=== PATIENT | male | born 1955 | race Caucasian/White ===

== ENCOUNTER 2024-03-08 13:11 | Outpatient (AMB) | payer MEDICARE, BC, SELFPAY ==
[2024-03-08 13:26] VITALS: BP 128/76; PULSE 69; RESP 18; TEMP 36.6; O2SAT 97; BMI 26.2
--- NOTE | 2024-03-08 13:26 | ORTHONT_ITS ---
Vital signs 03/08/24 13:26 Height 1.83 m Height Method Stated Weight 87.685 kg Weight Measurement Method Standing Scale BMI 26.2 BP 128/76 Blood Pressure Source Automatic Cuff Blood Pressure Location Right Upper Arm Position Sitting Respiration 18 Pulse 69 Pulse Source Monitor Temp 97.9 F Temp Source Temporal Artery Scan Pulse Oximetry (%) 97 Oxygen Delivery Method Room Air Med/Allergies Allergies & Medications Allergies No Known Allergies Allergy (Unknown, Uncoded 12/11/23 08:57) Medication Reconciliation No Known Home Medications 03/08/24 [History Confirmed 03/08/24] Exam Exam Patient is in no acute distress and is cooperative with the examination today. Patient has a normal mood and affect. Breathing is nonlabored. In no respiratory distress. Bilateral extremities were evaluated and demonstrates sensation intact to light touch. Palpable pedal pulses are present. No significant edema is present. Right knee is tender to palpation medially and laterally and there is no effusion. There is no instability. The knee feels stable varus and valgus stress and range of motion is 0 to 100 degrees Assessment and Plan Problem List (1) Aseptic loosening of prosthetic knee: Status: Acute Plan: Patient is a pleasant 60-year-old male with right knee pain and femoral-tibial loosening. The surgery was done in outside hospital and we would like to rule out infection. I will order labsTo rule out infection including both an ESR and CRP I will obtain a copy of his xrays from an outside institution. Will see him back once we get the results of his x-rays and lab results. I will also want to get his Synovasure report Advanced Care Planning Discussion Advance care planning discussed with:: patient Office Procedures GNS Level of Care Nursing/Assessment Patient Status: Established Patient Nursing Assessment/Reassesment: Medication Reconciliation, Update PMH in EMR and Vital Signs Coordination of Care: Complex Care and Chronic Disease 1-5, Education Complex Pt/Fam, Consent,records obtained, informed consent, Results/Orders obtained and Staff clarify orders Established Patient Charge Established Patient Point Assignment: 95 Established Patient Point Charge: EP Level 3 (80-115) [place] Intake Visit Data Collection New Patient or Established: Established Patient (seen at [facility] within 3 years) Reason for Visit:: KNEE PAIN Seen by Clinical Staff ONLY (RN/MA): No Verbal consent obtained for Telemed visit?: No Quality Facilitator Required: No PCP or OBGYN visit in last 3 months: Yes Hx Now: No Do You Feel Safe at Home: Yes Authorities Contacted: N/A Questionairres Past Medical History Past Medical History Have you ever been diagnosed with any of the following: Neurological Problems Seizures: No Cardiology Problems Congestive Heart Failure: No Respiratory Problems Chronic Obstructive Pulmonary Disease (COPD): No Genital/Urinary Problems Renal Disease: No Endocrine Problems Diabetes Mellitus Type 1: No Diabetes Mellitus Type 2: No Other Problems Blood Transfusions: No Anesthesia Reactions: No Subjective Visit Visit for: follow up visit and knee Immunization / Flu Flu Vaccine in the Last 12 Months: No Flu Vaccine Exclusion Criteria: No Exclusion Criteria History of Present Illness Chief complaint: KNEE PAIN Date of injury / onset of symptoms: NOV 2023 Date of 1st surgery (if applicable): [facility] [place] is a pleasant 60-year-old male with a history of a total knee [place] [address] Lobo. He is an avid hiker and is very active. He walks [place] [employer] [place] every year. The patient reports that he had an increase in knee pain 4 months ago. He was recently aspirated and was told that his components of both the femur and the t ibia are loose. He was seen up in [place] and they did send it for Synovasure. He is waiting for the results. He is here for second opinion. They wanted to do a two-stage exchange if it is infected Personal History Occupation: RETIRED Red flag PMH: none BMI Counceling provided: No Pain Pain level (0-10): 5 Pain duration: WITH MOVEMENT Pain location: inside (medial), outside (lateral), anterior and posterior Pain quality: sharp, dull and aching Pain timing: increases with activity Associated signs & symptoms: none Ambulatory data Ambulatory device: cane and walker Treatments Improvement with previous injections: No Improvement with PT: No Improvement with NSAIDS: yes (IBUPROFEN) Review of Systems Review of Systems: All systems negative unless otherwise noted in HPI.
== END 2024-03-08 13:42 | disposition home or self-care (01) ==
LOC: HODSRG 13:11
PROVIDERS: PCP Family Medicine; Referring Provider Family Medicine; Supervising Provider Orthopaedic Surgery Adult Reconstructive Orthopaedic Surgery; Visit Provider Orthopaedic Surgery Adult Reconstructive Orthopaedic Surgery
DX: T84.032D Mechanical loosening of internal right knee prosthetic joint, subsequent encounter (principal); M25.561 Pain in right knee
CPT/HCPCS: 99213; G0463

== ENCOUNTER → 2024-03-16 | Outpatient (CLI) | payer MEDICARE, BC, SELFPAY ==
--- NOTE | 2024-03-16 12:00 | XR_ITS ---
Examination: CT abdomen with intravenous contrast CT pelvis with intravenous contrast 2-D coronal reconstructions 2-D sagittal reconstructions Date and time of exam:March 16, 2024 1334 hours INDICATIONS: Hematuria and elevated PSA and laboratory examination December 2023. CTDI: vol (mGy) 13.6 DLP: (mGycm) 730 Technique: Multiple axial sections of the abdomen and pelvis have been obtained. 64 slice high-resolution scanner used. 3 mm axial sections have been obtained, post intravenous injection 60 cc [id number] 2-D sagittal, coronal reconstructions obtained. Low dose protocols were performed. One or more of the following dose reduction techniques were used; automated exposure control, adjustment of the mA and/or KV according to patient size, use of iterative reconstruction technique. Findings: No focal liver or splenic lesions No gallstones No pancreatic mass Aorta normal size Mild renal parenchymal scar formation 27 mm lateral right renal cyst No hydronephrosis or ureteral calculi No renal calculi Aorta normal size No bowel obstruction No pericecal inflammatory change, no diverticulitis Urinary bladder intact Prostate is irregular in contour, transverse dimension 5 cm No bladder mass or bladder calculi Advanced disc narrowing L5-S1 IMPRESSION: Mild bilateral renal parenchymal scar formation No renal or ureteral calculi, no hydronephrosis Prostatomegaly, transverse dimension 5 cm prostate irregular in contour
== END | disposition home or self-care (01) ==
PROVIDERS: PCP Family Medicine; Referring Provider Urology; Visit Provider Urology
DX: N28.89 Other specified disorders of kidney and ureter (principal); N40.0 Benign prostatic hyperplasia without lower urinary tract symptoms; N42.89 Other specified disorders of prostate
CPT/HCPCS: 74177; A4649; Q9967

== ENCOUNTER → 2024-03-16 | Outpatient (CLI) | payer MEDICARE, BC, SELFPAY ==
[2024-03-16 12:01] LABS: Anion Gap 6 (7-16); BUN/Creatinine Ratio 18 Ratio (12-20); Blood Urea Nitrogen 23 mg/dL (9-23); Calcium 10.6 mg/dL (8.3-10.6); Carbon Dioxide 29.8 mMol/L (20.0-31.0); Chloride 103 mMol/L (98-107); Creatinine (Component) 1.3 mg/dL (0.6-1.3); Glucose 115 mg/dL (74-106); Osmolality,Calculated 282 (275-295); Potassium 5.9 mMol/L (3.4-5.1); Sodium 139 mMol/L (136-145); eGFR 60 See Note
== END | disposition home or self-care (01) ==
PROVIDERS: PCP Family Medicine; Referring Provider Urology; Visit Provider Urology
DX: R31.1 Benign essential microscopic hematuria (principal)
CPT/HCPCS: 36415; 80048

== ENCOUNTER → 2024-03-22 | Outpatient (BNVA) | payer MEDICARE, BC, SELFPAY | END | disposition home or self-care (01) | PROVIDERS: PCP Family Medicine; Referring Provider Family Medicine; Visit Provider Urology | DX: N40.1 Benign prostatic hyperplasia with lower urinary tract symptoms (principal); N13.8 Other obstructive and reflux uropathy; N52.9 Male erectile dysfunction, unspecified; N28.89 Other specified disorders of kidney and ureter; R97.20 Elevated prostate specific antigen [PSA] | CPT/HCPCS: 81003; 99212; G0463 ==

== ENCOUNTER → 2024-04-15 | Outpatient (BNVA) | payer MEDICARE, BC, SELFPAY | END | disposition home or self-care (01) | PROVIDERS: PCP Family Medicine; Referring Provider Family Medicine; Visit Provider Urology | DX: N32.89 Other specified disorders of bladder (principal); N40.1 Benign prostatic hyperplasia with lower urinary tract symptoms; N13.8 Other obstructive and reflux uropathy | CPT/HCPCS: 52224; 81003; 96372; A4217; A4649; C1894; J1580; A9270 ==

== ENCOUNTER → 2024-05-24 | Outpatient (BNVA) | payer MEDICARE, BC, SELFPAY | END | disposition home or self-care (01) | PROVIDERS: PCP Family Medicine; Referring Provider Family Medicine; Visit Provider Urology | DX: N42.89 Other specified disorders of prostate (principal); N40.1 Benign prostatic hyperplasia with lower urinary tract symptoms; N13.8 Other obstructive and reflux uropathy | CPT/HCPCS: 55700; 76942; 81003; 96372; A4649; J1580; J3490; A9270 ==

== ENCOUNTER 2024-06-03 07:55 | Outpatient (AMB) | payer MEDICARE, BC, SELFPAY ==
--- NOTE | 2024-06-03 08:05 | ORTHONT_ITS ---
Vital signs 06/03/24 08:06 Height 1.8 m Height Method Stated Weight 86.636 kg Weight Measurement Method Standing Scale BMI 26.6 BP 134/80 H Blood Pressure Source Automatic Cuff Blood Pressure Location Left Upper Arm Position Sitting Respiration 18 Pulse 73 Pulse Source Monitor Temp 98.0 F Temp Source Temporal Artery Scan Pulse Oximetry (%) 98 Oxygen Delivery Method Room Air Med/Allergies Allergies & Medications Allergies No Known Allergies Allergy (Unknown, Uncoded 06/03/24 08:07) Medication Reconciliation tadalafil 10 mg tablet 10 mg PO QDAY PRN 03/22/24 [History Confirmed 06/03/24] Exam Exam Patient is in no acute distress and is cooperative with the examination today. Patient has a normal mood and affect. Breathing is nonlabored. In no respiratory distress. Bilateral extremities were evaluated and demonstrates sensation intact to light touch. Palpable pedal pulses are present. No significant edema is present. Right knee is tender to palpation medially and laterally and there is no effusion. There is no instability. The knee feels stable varus and valgus stress and range of motion is 0 to 100 degrees We reviewed x-rays from [facility]. This demonstrates femoral and tibial loosening with a radiolucent line. The tibial component is in slight varus. I did look at the initial postoperative films and there was no lucency on that film. This appeared to developed recently Assessment and Plan Problem List (1) Aseptic loosening of prosthetic knee: Status: Acute Plan: Patient is a 68-year-old male with aseptic loosening of the femoral and tibial component. He is very active. He still walks the [place] and is very long excursions. We discussed with him that this may have contributed possibly. We did an infection workup and it was negative. Given that he has a loose femoral and tibial component, we discussed revision total knee replacement both components. The nature and purpose of the Revision total knee replacement, alternative method(s) of treatment, the material risks involved, and the possibility of complications were fully explained to the patient. The patient does NOT have any of the following contraindications to TKA: - Active infection of the knee joint, OR - Active systemic bacteremia, OR - Active skin infection or open wound at surgical site, OR - Neuropathic arthritis, OR - Severe, rapidly progressive neurological disease, OR - Severe medical condition that makes risks of surgery outweigh the potential benefit The patient was told the most common risks and complications associated with a total knee replacement include, but are not limited to: blood clots in the leg, fatal pulmonary embolism, dislocation of the prosthesis, intraoperative and postoperative fractures of the femur or tibia, infection, failure of the prosthesis or grafting materials, complications from anesthesia, reactions to blood transfusions, postoperative leg length inequality, instability of the knee replacement, nerve damage or injury, vascular injury, delayed wound healing, infection, other injury or even . In addition, there are risks associated with anesthesia given during this operation. Also, the patient was told that after undergoing a total knee replacement there may still be persistent pain or disability. The patient was informed that the success of this operation in part depends upon the mechanical devices which are going to be implanted and that these devices can fail or malfunction, and may need to be repaired or replaced and there are no guarantees as to the longevity of this device or its parts and that it or its parts could fail prematurely. The patient was also notified that during the course of surgery, there may be a need to use bone graft from donors, and that any bone graft used will be carefully screened for communicable diseases, including AIDS, hepatitis, Alfonso-Creutzfeldt, or other diseases, but despite the screening procedures, there is a small chance that they could contract one of these diseases. Finally, the patient was asked to follow completely and fully with all advice and recommended treatments, and that recovery and ultimate outcome are affected by their compliance with recommended treatment. We discussed the risks, benefits and treatment alternatives, and the patient is interested in proceeding with surgery. We will try to set this up as expeditiously as possible. Advanced Care Planning Discussion Advance care planning discussed with:: patient Office Procedures GNS Level of Care Nursing/Assessment Patient Status: Established Patient Nursing Assessment/Reassesment: Medication Reconciliation, Update PMH in EMR and Vital Signs Coordination of Care: Complex Care and Chronic Disease 1-5, Education Complex Pt/Fam, Consent,records obtained, informed consent, Results/Orders obtained and Staff clarify orders Established Patient Charge Established Patient Point Assignment: 95 Established Patient Point Charge: EP Level 3 (80-115) [place] Intake Visit Data Collection New Patient or Established: Established Patient (seen at [facility] within 3 years) Reason for Visit:: FOLLOW UP RIGHT KNEE PAIN PCP or OBGYN visit in last 3 months: Yes Hx Now: No Do You Feel Safe at Home: Yes Authorities Contacted: N/A Questionairres Past Medical History Past Medical History Have you ever been diagnosed with any of the following: Neurological Problems Seizures: No Cardiology Problems Congestive Heart Failure: No Respiratory Problems Chronic Obstructive Pulmonary Disease (COPD): No Smoking: No Smoking Exposure: No Genital/Urinary Problems Renal Disease: No Endocrine Problems Diabetes Mellitus Type 1: No Diabetes Mellitus Type 2: No Other Problems Blood Transfusions: No Anesthesia Reactions: No Surgical History Total Knee Replacement: Yes (10/2019) Subjective Visit Visit for: follow up visit and knee (RIGHT) Immunization / Flu Flu Vaccine in the Last 12 Months: No Flu Vaccine Exclusion Criteria: No Exclusion Criteria History of Present Illness Chief complaint: right knee pain Patient is a pleasant 60-year-old male who is very did with a prior right total knee replacement. This unfortunately became loose. He is still walking but is in quite a bit of pain. We thus discussed revision knee replacement is reasonable option as he has documented aseptic loosening of both the femoral and tibial component. We did Previously workup infection and it was negative Pain Pain level (0-10): 10 Pain duration: CONSTANT Pain location: inside (medial), outside (lateral), anterior and posterior Pain quality: dull and aching Pain timing: night, increases with activity, stairs and other (specify) (WHEN SITTING TOO LONG) Ambulatory data Ambulatory device: none Treatments Improvement with previous injections: No Improvement with PT: No Improvement with NSAIDS: no Review of Systems Review of Systems: All systems negative unless otherwise noted in HPI.
[2024-06-03 08:06] VITALS: BP 134/80; PULSE 73; RESP 18; TEMP 36.7; O2SAT 98; BMI 26.6
--- NOTE | 2024-06-03 08:19 | XR_ITS ---
Examination: Right knee 4 views TECHNIQUE: Standing AP oblique lateral axial right knee 4 views Exam date and time: June 03, 2024 0832 hours INDICATIONS: Right knee replacement 2019, onset right knee pain beginning 5 months ago. FINDINGS: Moderate osteopenia Total right knee arthroplasty. Satisfactory alignment. No fracture No patellar dislocation IMPRESSION: Total right knee arthroplasty with satisfactory alignment
== END 2024-06-03 08:31 | disposition home or self-care (01) ==
LOC: HODSRG 07:55
PROVIDERS: PCP Family Medicine; Referring Provider Family Medicine; Supervising Provider Orthopaedic Surgery Adult Reconstructive Orthopaedic Surgery; Visit Provider Orthopaedic Surgery Adult Reconstructive Orthopaedic Surgery
DX: T84.032D Mechanical loosening of internal right knee prosthetic joint, subsequent encounter (principal); Y84.9 Medical procedure, unspecified as the cause of abnormal reaction of the patient, or of later complication, without mention of misadventure at the time of the procedure
CPT/HCPCS: 73564; 99213; G0463

== ENCOUNTER 2024-06-08 07:00 | Inpatient (IN) | payer MEDICARE, BC, SELFPAY ==
[2024-06-07 07:44] VITALS: BMI 28.0
--- NOTE | 2024-06-07 07:59 | EKG_ITS ---
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
[2024-06-07 08:38] LABS: Basophils % (Auto) 1 % (0-2.5); Eosinophils # (Auto) 0.2 Thou/mm3 (0.0-0.5); Eosinophils % (Auto) 4 % (0-10); Hematocrit 42.1 % (41.0-53.0); Immature Granulocytes % (Auto) 0 % (0-0); Lymphocytes # (Auto) 1.3 Thou/mm3 (1.0-4.8); Lymphocytes % (Auto) 29 % (10-50); Mean Corpuscular HGB Conc 33.3 g/dl (31.0-37.0); Mean Corpuscular Hemoglobin 30.2 pg (25.0-35.0); Mean Corpuscular Volume 91 fL (80-100); Monocytes # (Auto) 0.4 Thou/mm3 (0.0-0.8); Monocytes % (Auto) 9 % (0-12); Neutrophils # (Auto) 2.5 Thou/mm3 (1.8-7.7); Neutrophils % (Auto) 57 % (37-80); Nucleated Red Blood Cell % 0 /100 WBC (0); Platelet Count 283 Thou/mm3 (140-440); RDW Standard Deviation 42.3 fL (35.1-43.9); Red Blood Count 4.63 Miln/mm3 (4.50-5.90); White Blood Count 4.4 Thou/mm3 (3.8-10.6)
[2024-06-07 08:40] LABS: Partial Thromboplastin Time 26.7 Seconds (22.0-36.0); Prothrombin Time 10.9 Seconds (9.0-12.2)
[2024-06-07 08:51] LABS: Alanine Aminotransferase 28 U/L (10-49); Albumin, Serum 4.3 gm/dL (3.4-4.8); Albumin/Globulin Ratio 1.6 (1.2-2.2); Alkaline Phosphatase 69 U/L (46-116); Anion Gap 8 (7-16); Aspartate Amino Transferase 31 U/L (0-34); BUN/Creatinine Ratio 19 Ratio (12-20); Bilirubin,Total 0.7 mg/dL (0.3-1.2); Blood Urea Nitrogen 21 mg/dL (9-23); Calcium 10.3 mg/dL (8.3-10.6); Calcium (Corrected) 10.3 mg/dL (8.5-10.1); Carbon Dioxide 28.5 mMol/L (20.0-31.0); Chloride 102 mMol/L (98-107); Creatinine (Component) 1.1 mg/dL (0.6-1.3); Estimated Creatinine Clearance 69.9 mL/min (>60); Globulin 2.7 gm/dL (2.3-3.5); Glucose 107 mg/dL (74-106); Osmolality,Calculated 278 (275-295); Sodium 138 mMol/L (136-145); eGFR > 60 See Note
--- NOTE | 2024-06-07 15:09 | SUR.PREOP ---
Pt had appointment with [facility] at 1330 today for cardiac clearence, Dr Glover's MA stated they will fax it as soon as the Dr is done with the office notes. Dr Tinoco aware.
[2024-06-08] VITALS (13 sets, daily range): BP systolic 107–131; BP diastolic 61–84; PULSE 66–90; RESP 12–95; TEMP 36–37; O2SAT 92–100; BMI 27.8
[2024-06-08] MEDS: ACETAMINOPHEN 325 MG TABLET 650 MG PO (08:40)
[2024-06-08] MEDS: PREGABALIN 75 MG CAPSULE PO (08:41)
[2024-06-08] MEDS: MELOXICAM 7.5 MG TABLET PO ×2 (08:41→20:24)
[2024-06-08] MEDS: SODIUM CHLORIDE 0.9% 500 ML 500 ML 20 ML IV (08:42)
--- NOTE | 2024-06-08 14:20 | PD.SUROPNT ---
Date of Procedure 06/08/24 Pre Op Diagnosis mechanical loosening right knee Post Op Diagnosis mechanical loosening right knee Procedure right knee replacement Findings loose tibia and osteolysis Procedure Description Indication: The patient is a 68 year old who has a long history of left knee pain. He was found To have a loose tibial and possibly femoral component with radiolucent lines. The nature and purpose of the revision total knee replacement, alternative method(s) of treatment, the material risks involved, and the possibility of complications were fully explained to the patient. The patient was told the most common risks and complications associated with a revision total knee replacement include, but are not limited to blood clots in the leg, fatal pulmonary embolism, dislocation of the prosthesis, intraoperative and postoperative fractures of the femur or tibia, infection, failure of the prosthesis or grafting materials, complications from anesthesia, reactions to blood transfusions, postoperative leg length inequality, instability of the knee replacement, nerve damage or injury, vascular injury, delayed wound healing, infections, other injury or even . In addition, there are risks associated with anesthesia given during this operation, temporary or permanent numbness on the skin lateral to the incision can be a complication unique to total knee surgery, and kneeling can be painful after knee replacement surgery. Also, the patient was told that after undergoing a total knee replacement there may still be pain or disability. We also discussed that there is potential of infection even though we ruled out infection before given that radiolucent lines are rather rare The patient was informed that the success of this operation in part depends upon the mechanical devices which are going to be implanted and that these devices can fail or malfunction, and may need to be repaired or replaced and there are no guarantees as to the longevity of this device or its part and that it or its parts could fail prematurely. Finally, the patient was asked to follow completely and fully with all advice and recommended treatments, and that recovery and ultimate outcome are affected by their compliance with recommended treatment. Surgical technique: Patient was marked and consented in the pre-operative area. The patient was brought to the operating room and placed on the operating table in a supine position. Prior to positioning, a timeout procedure was performed between the surgeon, the anesthesiologist, and the nursing staff where the patient and the operative side were identified and confirmed. After adequate general anesthetic was obtained, the left lower extremity was prepped and draped in the usual sterile fashion. A weight based dose of Cefazolin were administered within 1 hour prior to incision. The extremity was exsanguinated with an esmarch badge and tourniquet inflated to 250mmHg. A midline incision was made. A median parapatellar arthrotomy was made. The patella was subluxed laterally. We first took several cultures. We then debrided devitalized tissue and cement debris. We then removed the tibial polyethylene. We then used a microsag saw to debond the femoral implant from the bone.We then removed the femur with a backslap to removed it with minimal bone loss. We then removed the tibial component which was grossly loose. We sequentially reamed the tibial canal with an intramedullary jig. We then cut the tibial plateau ensuring that we were sparing bone using the intramedullary cutting guide. We then prepared the tibia for B cone. Attention was then placed to the femur where we sequentially reamed the femoral canal. We used an intramedullary jig and sequentially reamed the femur. It was found that a 5 mm augment distally as well as posteriorly both medially and laterally were needed. We then cut the chamfers using the 4-in-1 block. We then trialed components. The knee was found to be stable in flexion and extension and varus valgus stress. We then irrigated the knee copiously with saline and surgery 4. We then placed a cement restrictor followed by a size B cementless cone. We then inserted a cement restrictor in the tibia and pressurized the tibial canal. We used 2 bags of Palacos and cemented the tibial component which was a size 5 with a 75 mm stem. We then went to the femoral component and cemented the femur which was a size 5 with 5 mm distal and posterior medial and lateral augments. We then inserted a size 14 poly trial and put the knee in extension until dry. We then trialed the implants with different size poly and used a size 14 poly and inserted it. The patella tracked well and no laterally strokes required The wounds were copiously irrigated following deflation of tourniquet. The medial retinaculum was reapproximated with #1 vicryl and quill. The subcutaneous tissues were closed with 0 and 2-0 interrupted Vicryl. The skin was closed with 3-0 Monofilament V loc suture. A sterile dressing was applied. The patient was transferred to a bed and brought to recovery in stable condition. The patient tolerated the procedure well. There were no intraoperative complications. Sponge and needle counts were correct times 2. As the attending surgeon, I attest I was present and performed the entire operation. Grafts/Implants Size 5 PS femur, size 5 tibia, 14 mm poly CS, 75 mm tibial stem, 100 mm femoral stem, size B: Tibia Anesthesia GETA Implants vanita Pathology / specimen None Pathology comment: none Estimated Blood Loss [address] floor Surgeon Carl Vang MD Surgical Staff Operation Date: 06/08/24 11:00 Case Staff Anesthesiologist: Kushal Jackson RN First Assistant: Gema Richards
--- NOTE | 2024-06-08 14:38 | SUR.PHASEI ---
1438 Patient arrived to recovery in bed, on oxygen 6L via oxy mask, oral airway removed upon arrival, breathing unlabored, vital signs stable, dressing intact to right knee; prineo, telfa, nga, kate wraps, no bleeding noted, denies pain, bilateral dorsalis pedis pulses present when palpated, patient has good circulation to right lower extremity; skin warm to touch and skin color normal for patient, capillary refill to right toes is one second, report received from Dr. Jackson and Ida HE/Leticia HE
[2024-06-08] MEDS: MORPHINE SULF INJ 10 MG/ML VIAL 3 MG IV (14:56)
[2024-06-08] MEDS: ACETAMINOPHEN IVPB 1,000 MG/100 ML VIAL 250 MG IV (14:59)
--- NOTE | 2024-06-08 15:00 | XR_ITS ---
Examination: Right knee 2 views Technique one AP lateral right knee 2 views Exam date and time: June 08, 2024 1520 hrs. Indications: Postop knee arthroplasty. Findings: Total right knee arthroplasty. Satisfactory alignment. No acute fracture Impression: Total right knee arthroplasty with satisfactory alignment
[2024-06-08] MEDS: HYDROmorphone INJ 2 MG/ML VIAL 0.4 MG IV (15:11)
--- NOTE | 2024-06-08 15:28 | SUR.PHASEI ---
1528 XRAY complete per MD order
[2024-06-08] MEDS: oxyCODONE HCL 5 MG IR TAB 10 MG PO (15:33)
--- NOTE | 2024-06-08 16:25 | SUR.PHASEII ---
1621 Report given to Marina HE, patient meets discharge criteria from recovery, awake and talking with his , breathing unlabored, vital signs stable, per patient his pain is tolerable, dressing intact; no bleeding noted, patient drinking fluids; tolerating well, denies nausea 1625 Patient transported via bed to room 361 without incident.
[2024-06-08] MEDS: ASPIRIN EC 81 MG TABEC PO (20:24)
[2024-06-08] MEDS: ceFAZolin/D5W 2 GM IV 2 GM/100 ML BAG IV (21:02)
[2024-06-09] VITALS: BP 113/72; PULSE 60; RESP 20; TEMP 35.9; O2SAT 95
[2024-06-09 04:00] VITALS: BP 110/68; PULSE 65; RESP 20; TEMP 35.6; O2SAT 97
[2024-06-09] MEDS: ceFAZolin/D5W 2 GM IV 2 GM/100 ML BAG IV (05:05)
[2024-06-09] MEDS: ACETAMINOPHEN 500 MG TABLET 1000 MG PO (05:06)
[2024-06-09 05:38] LABS: Basophils % (Auto) 0 % (0-2.5); Eosinophils % (Auto) 0 % (0-10); Hematocrit 38.2 % (41.0-53.0); Immature Granulocytes % (Auto) 0 % (0-0); Immature Granulocytes Auto 0.03 Thou/mm3 (0.00-0.00); Lymphocytes # (Auto) 0.5 Thou/mm3 (1.0-4.8); Lymphocytes % (Auto) 4 % (10-50); Mean Corpuscular Hemoglobin 30.7 pg (25.0-35.0); Mean Corpuscular Volume 90 fL (80-100); Monocytes # (Auto) 0.4 Thou/mm3 (0.0-0.8); Monocytes % (Auto) 3 % (0-12); Neutrophils # (Auto) 11.8 Thou/mm3 (1.8-7.7); Neutrophils % (Auto) 93 % (37-80); Nucleated Red Blood Cell % 0 /100 WBC (0); Platelet Count 232 Thou/mm3 (140-440); RDW Standard Deviation 42.1 fL (35.1-43.9); Red Blood Count 4.23 Miln/mm3 (4.50-5.90); White Blood Count 12.7 Thou/mm3 (3.8-10.6)
[2024-06-09 07:42] VITALS: BP 112/64; PULSE 63; RESP 16; TEMP 36.4; O2SAT 94
[2024-06-09] MEDS: ASPIRIN EC 81 MG TABEC PO (08:53)
[2024-06-09] MEDS: oxyCODONE HCL 5 MG IR TAB PO (09:05)
[2024-06-09] MEDS: PANTOPRAZOLE INJ 40 MG VIAL IV (09:57)
== END 2024-06-09 10:30 | disposition home or self-care (01) | DRG 470 ==
LOC: S2W1 15:01 → S3NX 16:31
PROVIDERS: Anesthesiology; Admitting Provider Orthopaedic Surgery Adult Reconstructive Orthopaedic Surgery; PCP Family Medicine; Visit Provider Orthopaedic Surgery Adult Reconstructive Orthopaedic Surgery
PROC: 0SRC0J9 Replacement of Right Knee Joint with Synthetic Substitute, Cemented, Open Approach (ICD-10-PCS; CPT 27487; principal; 2024-06-08 10:45)
DX: T84.030A Mechanical loosening of internal right hip prosthetic joint, initial encounter (principal); M25.562 Pain in left knee
CPT/HCPCS: 36415; 73560; 80053; 85025; 85610; 85730; 87070; 87075; 87081; 87205; 93005; 97162; A4217; C1713; C1776; J0131; J0689; J0690; J1100; J1885; J2250; J2270; J2405; J2470; J2704; J2795; J3010; J3371; J3490; J7030; J7040; J7120; J7999; A4648; A4649; A9270

== ENCOUNTER 2024-06-23 13:11 | Outpatient (AMB) | payer MEDICARE, BC, SELFPAY ==
--- NOTE | 2024-06-23 13:28 | ORTHONT_ITS ---
Vital signs 06/23/24 13:29 Height 1.73 m Height Method Stated Weight 82.554 kg Weight Measurement Method Standing Scale BMI 27.6 BP 127/77 Blood Pressure Source Automatic Cuff Blood Pressure Location Right Upper Arm Position Sitting Respiration 18 Pulse 67 Pulse Source Monitor Temp 98.5 F Temp Source Temporal Artery Scan Pulse Oximetry (%) 98 Oxygen Delivery Method Room Air Med/Allergies Allergies & Medications Allergies No Known Allergies Allergy (Verified 06/23/24 13:30) Medication Reconciliation tadalafil 10 mg tablet 10 mg PO QDAY PRN sexual activity 03/22/24 [History Confirmed 06/23/24] acetaminophen 500 mg tablet (Acetaminophen Extra Strength) 1,000 mg (2 x 500 mg) PO Q6H PRN pain #90 tabs 06/08/24 [Rx Confirmed 06/23/24] aspirin 81 mg tablet,delayed release 81 mg PO BID #60 tabs 06/08/24 [Rx Confirmed 06/23/24] doxycycline hyclate 100 mg tablet 100 mg PO BID #14 tabs 06/08/24 [Rx Confirmed 06/23/24] oxycodone 5 mg tablet 5 mg PO Q6H PRN pain #28 tabs 06/08/24 [Rx Confirmed 06/23/24] sennosides 8.6 mg-docusate sodium 50 mg tablet (Senna-S) 1 tab-cap PO QDAY #30 tabs 06/08/24 [Rx Confirmed 06/23/24] gabapentin 300 mg capsule 300 mg PO .qhs #30 caps 06/23/24 [Rx] Exam Exam Patient is in no acute distress and is cooperative with the examination today. Patient has a normal mood and affect. Breathing is nonlabored. In no respiratory distress. Bilateral extremities were evaluated and demonstrates sensation intact to light touch. Palpable pedal pulses are present. No significant edema is present. Right knee is tender to palpation medially and laterally and there is no effusion. Incisions clean dry intact. Range of motion is 0 to 100 degrees Assessment and Plan Problem List (1) Aseptic loosening of prosthetic knee: Status: Acute Plan: Patient is a 68-year-old male with aseptic loosening of the femoral and tibial component. He is very active. He is doing well status post revision. We will see him in approximately 4 weeks with new x-rays. He is doing fantastic. Advanced Care Planning Discussion Advance care planning discussed with:: patient Office Procedures GNS Level of Care Nursing/Assessment Patient Status: Established Patient Nursing Assessment/Reassesment: Medication Reconciliation, Update PMH in EMR and Vital Signs Coordination of Care: Complex Care and Chronic Disease 1-5, Education Complex Pt/Fam, Consent,records obtained, informed consent, Results/Orders obtained and Staff clarify orders Established Patient Charge Established Patient Point Assignment: 95 Established Patient Point Charge: EP Level 3 (80-115) MA Intake Visit Data Collection New Patient or Established: Established Patient (seen at [facility] within 3 years) Reason for Visit:: 2 week post op right knee revision Seen by Clinical Staff ONLY (RN/MA): No Verbal consent obtained for Telemed visit?: No Finish Grinder Required: No PCP or OBGYN visit in last 3 months: Yes Hx Now: No Do You Feel Safe at Home: Yes Authorities Contacted: N/A Questionairres Past Medical History Past Medical History Have you ever been diagnosed with any of the following: Neurological Problems Seizures: No Cardiology Problems Congestive Heart Failure: No Valvular Heart Disease: Yes (Leaky valve) Respiratory Problems Chronic Obstructive Pulmonary Disease (COPD): No Smoking: No Smoking Exposure: No Stomache/Intestinal Problems Hepatitis: No Celiac Disease: No Genital/Urinary Problems Renal Disease: No Benign Prostatic Hyperplasia: Yes Head,Eye,Nose,Throat Problems Cataracts: Yes Endocrine Problems Diabetes Mellitus Type 1: No Diabetes Mellitus Type 2: No Other Problems Hospitalization: Yes (surgery) Shingles: No Blood Transfusions: No Blood Transfusion Reaction: No Anesthesia Reactions: No Chicken Pox: Yes Measles: Yes Mumps: Yes Cancer: No Surgical History Total Knee Replacement: Yes (10/2019) Subjective Visit Visit for: follow up visit and knee Immunization / Flu Flu Vaccine in the Last 12 Months: No Flu Vaccine Exclusion Criteria: No Exclusion Criteria History of Present Illness Chief complaint: 2 week post op right knee revision Carlitos is 2 weeks status post right total knee revision for mechanical loosening. He is doing well. He is using no assistive device at this time Pain Pain level (0-10): 0 Associated signs & symptoms: none Ambulatory data Ambulatory device: none Treatments Improvement with previous injections: No Improvement with PT: No Improvement with NSAIDS: no Review of Systems Review of Systems: All systems negative unless otherwise noted in HPI.
[2024-06-23 13:29] VITALS: BP 127/77; PULSE 67; RESP 18; TEMP 36.9; O2SAT 98; BMI 27.6
== END 2024-06-23 13:37 | disposition home or self-care (01) ==
LOC: HODSRG 13:11
PROVIDERS: PCP Family Medicine; Referring Provider Family Medicine; Supervising Provider Orthopaedic Surgery Adult Reconstructive Orthopaedic Surgery; Visit Provider Orthopaedic Surgery Adult Reconstructive Orthopaedic Surgery
DX: T84.032D Mechanical loosening of internal right knee prosthetic joint, subsequent encounter (principal); Y84.9 Medical procedure, unspecified as the cause of abnormal reaction of the patient, or of later complication, without mention of misadventure at the time of the procedure
CPT/HCPCS: 99213; G0463

== ENCOUNTER → 2024-07-19 | Outpatient (CLI) | payer MEDICARE, BC, SELFPAY ==
--- NOTE | 2024-07-19 | XR_ITS ---
Examination: Bilateral AP knees single view PA standing flexion right knee, standing lateral right knee, axial right knee TECHNIQUE: Bilateral AP knees standing single view PA standing flexion right knee, standing lateral right knee, axial right knee 3 views total 4 views Date and time: July 19, 2024 0806 hours INDICATIONS: Status post knee surgery 4 weeks ago. FINDINGS: Total right knee arthroplasty. Satisfactory alignment. No fracture. No loosening of the prosthetic components. No patellar dislocation. Mild to moderate narrowing medial joint space left knee IMPRESSION: Total right knee arthroplasty with satisfactory alignment
== END | disposition home or self-care (01) ==
PROVIDERS: PCP Family Medicine; Referring Provider Orthopaedic Surgery Adult Reconstructive Orthopaedic Surgery; Visit Provider Orthopaedic Surgery Adult Reconstructive Orthopaedic Surgery
DX: T84.038A Mechanical loosening of other internal prosthetic joint, initial encounter (principal); Z96.651 Presence of right artificial knee joint
CPT/HCPCS: 73564

== ENCOUNTER 2024-07-21 12:50 | Outpatient (AMB) | payer MEDICARE, BC, SELFPAY ==
[2024-07-21 13:07] VITALS: BP 123/74; PULSE 63; RESP 18; TEMP 37.1; O2SAT 99; BMI 28.1
--- NOTE | 2024-07-21 13:07 | ORTHONT_ITS ---
Vital signs 07/21/24 13:07 Height 1.73 m Height Method Stated Weight 84.17 kg Weight Measurement Method Standing Scale BMI 28.1 BP 123/74 Blood Pressure Source Automatic Cuff Blood Pressure Location Right Upper Arm Position Sitting Respiration 18 Pulse 63 Pulse Source Monitor Temp 98.8 F Temp Source Temporal Artery Scan Pulse Oximetry (%) 99 Oxygen Delivery Method Room Air Med/Allergies Allergies & Medications Allergies No Known Allergies Allergy (Verified 07/21/24 13:08) Medication Reconciliation tadalafil 10 mg tablet 10 mg PO QDAY PRN sexual activity 03/22/24 [History Confirmed 07/21/24] acetaminophen 500 mg tablet (Acetaminophen Extra Strength) 1,000 mg (2 x 500 mg) PO Q6H PRN pain #90 tabs 06/08/24 [Rx Confirmed 07/21/24] aspirin 81 mg tablet,delayed release 81 mg PO BID #60 tabs 06/08/24 [Rx Confirmed 07/21/24] doxycycline hyclate 100 mg tablet 100 mg PO BID #14 tabs 06/08/24 [Rx Confirmed 07/21/24] oxycodone 5 mg tablet 5 mg PO Q6H PRN pain #28 tabs 06/08/24 [Rx Confirmed 07/21/24] sennosides 8.6 mg-docusate sodium 50 mg tablet (Senna-S) 1 tab-cap PO QDAY #30 tabs 06/08/24 [Rx Confirmed 07/21/24] gabapentin 300 mg capsule 300 mg PO .qhs #30 caps 06/23/24 [Rx Confirmed 07/21/24] Exam Exam Patient is in no acute distress and is cooperative with the examination today. Patient has a normal mood and affect. Breathing is nonlabored. In no respiratory distress. Bilateral extremities were evaluated and demonstrates sensation intact to light touch. Palpable pedal pulses are present. No significant edema is present. Right knee is tender to palpation medially and laterally and there is no effusion. Incisions clean dry intact. 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 He is very active. He is doing well status post revision. He is doing very well. We will see him back in approximately 4 months Advanced Care Planning Discussion Advance care planning discussed with:: patient Office Procedures GNS Level of Care Nursing/Assessment Patient Status: Established Patient Nursing Assessment/Reassesment: Medication Reconciliation, Update PMH in EMR and Vital Signs Coordination of Care: Complex Care and Chronic Disease 1-5, Consent,records obtained, informed consent, Education Simp Pt/Fam, Results/Orders obtained and Staff clarify orders Established Patient Charge Established Patient Point Assignment: 90 Established Patient Point Charge: EP Level 3 (80-115) MA Intake Visit Data Collection New Patient or Established: Established Patient (seen at [facility] within 3 years) Reason for Visit:: 6 WEEK POST OP RT KNEE REVISION Seen by Clinical Staff ONLY (RN/MA): No Secretary Receptionist Required: No PCP or OBGYN visit in last 3 months: Yes Hx Now: No Do You Feel Safe at Home: Yes Authorities Contacted: N/A Questionairres Past Medical History Past Medical History Have you ever been diagnosed with any of the following: Neurological Problems Seizures: No Cardiology Problems Congestive Heart Failure: No Valvular Heart Disease: Yes (Leaky valve) Respiratory Problems Chronic Obstructive Pulmonary Disease (COPD): No Smoking: No Smoking Exposure: No Stomache/Intestinal Problems Hepatitis: No Celiac Disease: No Genital/Urinary Problems Renal Disease: No Benign Prostatic Hyperplasia: Yes Head,Eye,Nose,Throat Problems Cataracts: Yes Endocrine Problems Diabetes Mellitus Type 1: No Diabetes Mellitus Type 2: No Other Problems Hospitalization: Yes (surgery) Shingles: No Blood Transfusions: No Blood Transfusion Reaction: No Anesthesia Reactions: No Chicken Pox: Yes Measles: Yes Mumps: Yes Cancer: No Surgical History Total Knee Replacement: Yes (10/2019) Subjective Visit Visit for: post op #2 (RT KNEE REVISION ) Immunization / Flu Flu Vaccine in the Last 12 Months: No Flu Vaccine Exclusion Criteria: Refused by Patient History of Present Illness Chief complaint: 2 week post op right knee revision Carlitos is 6 weeks status post right total knee revision for mechanical loosening. He is doing well. He is using no assistive device at this time and is very happy Personal History Red flag PMH: none Pain Pain level (0-10): 0 Associated signs & symptoms: none Ambulatory data Ambulatory device: none Treatments Improvement with previous injections: No Improvement with PT: No Improvement with NSAIDS: no Review of Systems Review of Systems: All systems negative unless otherwise noted in HPI.
== END 2024-07-21 13:12 | disposition home or self-care (01) ==
LOC: HODSRG 12:50
PROVIDERS: PCP Family Medicine; Referring Provider Family Medicine; Supervising Provider Orthopaedic Surgery Adult Reconstructive Orthopaedic Surgery; Visit Provider Orthopaedic Surgery Adult Reconstructive Orthopaedic Surgery
DX: T84.032D Mechanical loosening of internal right knee prosthetic joint, subsequent encounter (principal)
CPT/HCPCS: 99213; G0463

== ENCOUNTER → 2024-09-14 | Outpatient (CLI) | payer MEDICARE, BC, SELFPAY ==
[2024-09-14 10:36] LABS: Basophils # (Auto) 0.0 Thou/mm3 (0.0-0.2); Basophils % (Auto) 0 % (0-2.5); Eosinophils # (Auto) 0.2 Thou/mm3 (0.0-0.5); Eosinophils % (Auto) 4 % (0-10); Hematocrit 41.9 % (41.0-53.0); Hemoglobin 14.1 g/dL (13.5-16.0); Immature Granulocytes Auto 0.01 Thou/mm3 (0.00-0.00); Lymphocytes # (Auto) 1.2 Thou/mm3 (1.0-4.8); Lymphocytes % (Auto) 30 % (10-50); Mean Corpuscular HGB Conc 33.7 g/dl (31.0-37.0); Mean Corpuscular Hemoglobin 30.2 pg (25.0-35.0); Mean Corpuscular Volume 90 fL (80-100); Monocytes # (Auto) 0.4 Thou/mm3 (0.0-0.8); Monocytes % (Auto) 9 % (0-12); Neutrophils # (Auto) 2.2 Thou/mm3 (1.8-7.7); Neutrophils % (Auto) 56 % (37-80); Nucleated Red Blood Cell # 0.00 Thou/mm3 (0.00-0.00); Nucleated Red Blood Cell % 0 /100 WBC (0); Platelet Count 222 Thou/mm3 (140-440); RDW Standard Deviation 42.2 fL (35.1-43.9); Red Blood Count 4.67 Miln/mm3 (4.50-5.90); White Blood Count 4.0 Thou/mm3 (3.8-10.6)
[2024-09-14 10:53] LABS: Alanine Aminotransferase 16 U/L (10-49); Albumin, Serum 4.1 gm/dL (3.4-4.8); Alkaline Phosphatase 53 U/L (46-116); Anion Gap 8 (7-16); Aspartate Amino Transferase 23 U/L (0-34); BUN/Creatinine Ratio 16 Ratio (12-20); Bilirubin,Direct 0.3 mg/dL (0.0-0.3); Bilirubin,Total 1.3 mg/dL (0.3-1.2); Blood Urea Nitrogen 19 mg/dL (9-23); Calcium 9.6 mg/dL (8.3-10.6); Carbon Dioxide 28.4 mMol/L (20.0-31.0); Cardiac Risk Estimate 2.8 RATIO (4.0-6.7); Chloride 105 mMol/L (98-107); Cholesterol 201 mg/dL (132-200); Creatinine (Component) 1.2 mg/dL (0.6-1.3); Free T4 (Free Thyroxine) 1.10 ng/dL (0.89-1.76); Glucose 102 mg/dL (74-106); HDL Cholesterol 72 mg/dL (40-60); LDL Cholesterol,Calculated 112 mg/dL (0-130); Osmolality,Calculated 283 (275-295); Potassium 4.8 mMol/L (3.4-5.1); Sodium 141 mMol/L (136-145); Thyroid Stimulating Hormone 1.26 uIU/mL (0.55-4.78); Total Protein 6.5 gm/dL (5.7-8.2); Triglycerides 83 mg/dL (30-150); eGFR > 60 See Note
== END | disposition home or self-care (01) ==
LOC: COPL 09:40
PROVIDERS: PCP Family Medicine; Referring Provider Internal Medicine Cardiovascular Disease; Visit Provider Internal Medicine Cardiovascular Disease
DX: I10 Essential (primary) hypertension (principal); E78.5 Hyperlipidemia, unspecified; I35.0 Nonrheumatic aortic (valve) stenosis
CPT/HCPCS: 36415; 80048; 80061; 80076; 84439; 84443; 85025

== ENCOUNTER 2024-11-22 12:49 | Outpatient (AMB) | payer MEDICARE, BC, SELFPAY ==
--- NOTE | 2024-11-22 12:52 | ORTHONT_ITS ---
Vital signs 11/22/24 13:03 Height 1.73 m Height Method Stated Weight 84.595 kg Weight Measurement Method Standing Scale BMI 28.3 BP 107/68 Blood Pressure Source Automatic Cuff Blood Pressure Location Left Upper Arm Position Sitting Respiration 18 Pulse 72 Pulse Source Monitor Temp 98.7 F Temp Source Temporal Artery Scan Pulse Oximetry (%) 97 Oxygen Delivery Method Room Air Med/Allergies Allergies & Medications Allergies No Known Allergies Allergy (Verified 11/22/24 13:03) Medication Reconciliation tadalafil 10 mg tablet 10 mg PO QDAY PRN sexual activity 03/22/24 [History Confirmed 07/21/24] acetaminophen 500 mg tablet (Acetaminophen Extra Strength) 1,000 mg (2 x 500 mg) PO Q6H PRN pain #90 tabs 06/08/24 [Rx Confirmed 07/21/24] Exam Exam Patient is in no acute distress and is cooperative with the examination today. Patient has a normal mood and affect. Breathing is nonlabored. In no respiratory distress. Bilateral extremities were evaluated and demonstrates sensation intact to light touch. Palpable pedal pulses are present. No significant edema is present. Right knee is tender to palpation medially and laterally and there is no effusion. Incisions clean dry intact. Range of motion is 0 to 100 degrees X-rays Demonstrate cemented total knee replacement in good alignment position Assessment and Plan Problem List (1) Aseptic loosening of prosthetic knee: Status: Acute Plan: ASSESSMENT AND PLAN 1. Postoperative status following revision total knee replacement for aseptic loosening on the right side: Satisfactory progress is noted post-surgery. He is 5 months out from surgery. minor swelling occurs with overactivity but resolves quickly. Pain is experienced after prolonged activity, does not require medication, and resolves by the next day. Occasional mechanical sensations and popping sounds are reported, which are expected due to the metal components. An x-ray of the right knee will be conducted today to assess the current status. An x-ray of the right knee will be obtained today to evaluate the current status of the knee replacement. Continued monitoring of activity levels is recommended to avoid overexertion. Patient education on recognizing signs of complications and the importance of reporting any significant changes or persistent symptoms is provided. No medication is prescribed at this time due to the self-resolving nature of the symptoms. Encouragement to maintain a balanced level of activity without overstraining the knee is given. No referrals are necessary at this time. 2. Left knee pain: Occasional pain is reported in the left knee, previously noted to be in worse condition than the right knee. A baseline x-ray of the left knee will be obtained today to monitor any changes and plan for future interventions if necessary. A baseline x-ray of the left knee will be obtained today to monitor any changes. Patient education on the potential need for future interventions based on x-ray findings is provided. Discussion on the benefits of early detection and management of knee issues is conducted. No medication is prescribed at this time. Recommendations for maintaining a balanced level of activity and avoiding overexertion are given. No referrals are necessary at this time. Follow-up: The patient will follow up in 6 months. Advanced Care Planning Discussion Advance care planning discussed with:: patient Office Procedures GNS Level of Care Nursing/Assessment Patient Status: Established Patient Nursing Assessment/Reassesment: Medication Reconciliation, Update PMH in EMR and Vital Signs Coordination of Care: Complex Care and Chronic Disease 1-5, Education Complex Pt/Fam, Consent,records obtained, informed consent, Results/Orders obtained and Staff clarify orders Established Patient Charge Established Patient Point Assignment: 95 Established Patient Point Charge: EP Level 3 (80-115) MA Intake Visit Data Collection New Patient or Established: Established Patient (seen at [facility] within 3 years) Reason for Visit:: F/U RT KNEE REVISION Seen by Clinical Staff ONLY (RN/MA): No Tire Repairman Required: No PCP or OBGYN visit in last 3 months: Yes Hx Now: No Do You Feel Safe at Home: Yes Authorities Contacted: N/A Questionairres Past Medical History Past Medical History Have you ever been diagnosed with any of the following: Neurological Problems Seizures: No Cardiology Problems Congestive Heart Failure: No Valvular Heart Disease: Yes (Leaky valve) Respiratory Problems Chronic Obstructive Pulmonary Disease (COPD): No Smoking: No Smoking Exposure: No Stomache/Intestinal Problems Hepatitis: No Celiac Disease: No Genital/Urinary Problems Renal Disease: No Benign Prostatic Hyperplasia: Yes Head,Eye,Nose,Throat Problems Cataracts: Yes Endocrine Problems Diabetes Mellitus Type 1: No Diabetes Mellitus Type 2: No Other Problems Hospitalization: Yes (surgery) Shingles: No Blood Transfusions: No Blood Transfusion Reaction: No Anesthesia Reactions: No Chicken Pox: Yes Measles: Yes Mumps: Yes Cancer: No Surgical History Total Knee Replacement: Yes (10/2019) Subjective Visit Visit for: follow up visit and knee (RIGHT) Immunization / Flu Flu Vaccine in the Last 12 Months: No Flu Vaccine Exclusion Criteria: Refused by Patient History of Present Illness HISTORY OF PRESENT ILLNESS I, Carl Vang, have obtained verbal consent from the patient, to be recorded during this encounter which may include, but not limited to, medical history, examination, treatment plans, and relevant health information.? Patient was informed that recording will be read and reviewed by myself before inclusion in the medical chart. The patient is a 68-year-old male who presents for a revision total knee replacement for aseptic loosening on the right side. He reports overall satisfaction with the outcome of his surgery, noting only minor issues. Occasional swelling in the knee is attributed to overexertion at work, typically subsiding within a day. Pain in the knee occurs during prolonged periods of walking, approximately 2 to 3 hours, three times a week, but is not severe enough to warrant medication and usually resolves by the next day. Additionally, a mechanical sensation in the knee, accompanied by a popping sound, occurs a few times a week during walking. Despite these issues, he maintains an active lifestyle, engaging in activities such as building a large [employer] and constructing a playground for his grandchildren. He recently returned from a hiking trip where he covered about 30 miles over three days. He also reports occasional pain in his left knee. Initial x-rays had indicated a more severe condition in the left knee compared to the right, but the pain was predominantly in the right knee. PAST SURGICAL HISTORY: Revision total knee replacement for aseptic loosening on the right side. Prostate and bladder procedures. Personal History Red flag PMH: none Pain Pain level (0-10): 0 Associated signs & symptoms: none Ambulatory data Ambulatory device: none Treatments Improvement with previous injections: No Improvement with PT: No Improvement with NSAIDS: no Review of Systems Review of Systems: All systems negative unless otherwise noted in HPI.
[2024-11-22 13:03] VITALS: BP 107/68; PULSE 72; RESP 18; TEMP 37.1; O2SAT 97; BMI 28.3
--- NOTE | 2024-11-22 13:08 | XR_ITS ---
Examination: Bilateral knees 2 views Right lateral knee left lateral knee 2 views Bilateral axial knees single view TECHNIQUE: Bilateral AP knees standing single view, bilateral PA knees standing single view flexion Standing right lateral knee left lateral knee 2 views Bilateral axial knees single view total 5 views Date and time: November 22, 2024, 1312 hours INDICATIONS: Left knee pain 10 years, right knee replacement May 2024 FINDINGS: Moderate osteopenia. Total right knee arthroplasty. Satisfactory alignment. No fracture or loosening of the prosthetic components Severe narrowing medial joint space left knee Moderate osteoarthritis left patellofemoral joint Small left knee effusion No fracture IMPRESSION: Total right knee arthroplasty with satisfactory alignment Severe narrowing medial joint space left knee
== END 2024-11-22 13:11 | disposition home or self-care (01) ==
LOC: HODSRG 12:49
PROVIDERS: PCP Family Medicine; Referring Provider Family Medicine; Supervising Provider Orthopaedic Surgery Adult Reconstructive Orthopaedic Surgery; Visit Provider Orthopaedic Surgery Adult Reconstructive Orthopaedic Surgery
DX: T84.032D Mechanical loosening of internal right knee prosthetic joint, subsequent encounter (principal); Y84.9 Medical procedure, unspecified as the cause of abnormal reaction of the patient, or of later complication, without mention of misadventure at the time of the procedure; M25.862 Other specified joint disorders, left knee; M25.562 Pain in left knee
CPT/HCPCS: 73564; 99213; G0463

== ENCOUNTER → 2024-11-28 | Outpatient (BNVA) | payer MEDICARE, BC, SELFPAY | END | disposition home or self-care (01) | PROVIDERS: PCP Family Medicine; Referring Provider Family Medicine; Visit Provider Urology | DX: R97.20 Elevated prostate specific antigen [PSA] (principal); N40.1 Benign prostatic hyperplasia with lower urinary tract symptoms; N13.8 Other obstructive and reflux uropathy; N52.9 Male erectile dysfunction, unspecified | CPT/HCPCS: 81003; 99212; G0463 ==